=== PATIENT | male | born 1990 | race Caucasian/White ===

== ENCOUNTER 2021-08-22 11:32 | Emergency (ER) | payer MEDICAID ==
[~2021-08-22] VITALS: Ht 200.7 cm; Wt 190.5 kg
[~2021-08-22 11:32] MED LIST: Amoxicillin500 MG PO; Bactrim Ds Tab1 EACH PO; CEPH500 PO; Keflex500 MG PO; Naprosyn500 MG PO
[2021-08-22 13:22] LABS: BASOPHILS ABSOLUTE AUTO 0.03 K/mm3 (0.00-0.23); BASOPHILS PERCENT AUTO 1 % (0-2); EOSINOPHILS ABSOLUTE AUTO 0.08 K/mm3 (0.00-0.68); EOSINOPHILS PERCENT AUTO 1 % (0-6); Hematocrit 49.2 % (37.0-53.0); Hemoglobin 16.9 g/dL (13.5-17.5); IMMATURE GRAN ABSOLUTE AUTO 0.01 K/mm3 (0.00-0.10); IMMATURE GRAN PERCENT AUTO 0 % (0-1); LYMPHOCYTES ABSOLUTE AUTO 1.43 K/mm3 (0.84-5.20); LYMPHOCYTES PERCENT AUTO 26 % (21-46); MONOCYTES PERCENT AUTO 13 % (4-13); Mean Corpuscular HGB 31.4 pg (26.0-34.0); Mean Corpuscular HGB Conc 34.3 g/dL (31.5-36.5); Mean Corpuscular Volume 91 fL (80-100); NEUTROPHILS ABSOLUTE AUTO 3.34 K/mm3 (1.96-9.15); NEUTROPHILS PERCENT AUTO 60 % (41-73); Platelet Count 220 K/mm3 (150-400); RDW Coefficient Variation 12.5 % (11.7-14.2); RDW Standard Deviation 42.4 fL (35.1-46.3); Red Blood Cell Count 5.39 M/mm3 (4.30-5.90); White Blood Cell Count 5.59 K/mm3 (4.00-11.30)
[2021-08-22 13:41] LABS: Albumin, Blood 4.2 g/dL (3.4-5.0); Albumin/Globulin Ratio 1.2 (0.8-1.8); Calcium, Blood 9.4 mg/dL (8.5-10.1); Creatinine, Blood 1.07 mg/dL (0.60-1.20); Globulin, Blood 3.6 g/dL (2.2-4.0); Potassium, Blood 4.2 mmol/L (3.5-5.5); Total Protein, Blood 7.8 g/dL (6.4-8.2)
[2021-08-22] MEDS ORDERED: ONDA4ODT MM (14:32)
[2021-08-22] MEDS ORDERED: OMEP20ER PO (14:32)
[2021-08-22] MEDS ORDERED: Almacone Liqui355 ML PO (14:32)
== END 2021-08-22 16:20 | disposition home or self-care (01) ==
LOC: ER 11:32
PROVIDERS: Physician Assistant
DX: R10.13 Epigastric pain (principal); K92.1 Melena; R11.0 Nausea; R74.01 Elevation of levels of liver transaminase levels; F17.220 Nicotine dependence, chewing tobacco, uncomplicated; Z79.899 Other long term (current) drug therapy
CPT/HCPCS: 80053; 85025; 93005; 93010; A9270; J2405; J7030

== ENCOUNTER 2022-09-14 02:09 | Day surgery (SDC) | payer OTHER ==
[~2022-09-14 02:09] MED LIST changes: +Almacone Liqui355 ML PO; +HYDR1TAB94 PO; +OMEP20ER PO; +ONDA4ODT MM
== END 2022-09-14 22:53 | disposition home or self-care (01) ==
LOC: WOUND 02:09
DX: S98.112D Complete traumatic amputation of left great toe, subsequent encounter (principal); X58.XXXD Exposure to other specified factors, subsequent encounter; F17.290 Nicotine dependence, other tobacco product, uncomplicated
CPT/HCPCS: 99406; A9270; G0463

== ENCOUNTER → 2022-10-24 | Outpatient (CLI) | payer OTHER ==
[2022-10-26 14:09] LABS: TESTOSTERONE, SERUM 184 ng/dL (264-916)
== END ==
LOC: LAB SHORT 08:32 → LAB 08:32
PROVIDERS: Nurse Practitioner Family
DX: R53.81 Other malaise (principal)
CPT/HCPCS: 84402; 84403

== ENCOUNTER → 2022-12-27 | Outpatient (CLI) | payer OTHER ==
[2022-12-29 16:07] LABS: FREE TESTOSTERONE(DIRECT) 13.2 pg/mL (8.7-25.1); TESTOSTERONE, SERUM 717 ng/dL (264-916)
== END | disposition home or self-care (01) ==
LOC: LAB 08:53 → LAB SHORT 08:53
PROVIDERS: Nurse Practitioner Family
DX: E29.1 Testicular hypofunction (principal)
CPT/HCPCS: 84402; 84403

== ENCOUNTER → 2023-02-14 | Outpatient (CLI) | payer OTHER ==
[2023-02-16 21:08] LABS: FREE TESTOSTERONE(DIRECT) 10.3 pg/mL (8.7-25.1); TESTOSTERONE, SERUM 464 ng/dL (264-916)
== END | disposition home or self-care (01) ==
LOC: LAB 10:56 → LAB SHORT 10:56
PROVIDERS: Nurse Practitioner Family
DX: E29.1 Testicular hypofunction (principal)
CPT/HCPCS: 84402; 84403